=== PATIENT | female | born 1970 | race Caucasian/White ===

== ENCOUNTER 2018-09-30 12:06 | Outpatient (CLI) | payer OTHER ==
[~2018-09-30] VITALS: Ht 160 cm; Wt 61.4 kg
[~2018-09-30 12:06] MED LIST: AMBIEN5 MG PO; BAYER CHEWABLE81 MG PO; BENICAR20 MG PO; BYSTOLIC10 MG PO; CARAFATE1 G PO; DEXILANT30 MG PO; DILAUDID2 MG PO; DIOVAN320 MG PO; EDARBYCLOR 40-1 EACH; ESTRACE2 MG PO; FLAGYL250 MG PO; HYDROCHLOROTHIA25 MG GT; HYOSCYAMINE PO; KLONOPIN0.5 MG PO; NIFEDIPINE ER30 MG PO; PHENERGAN25 M1 PO; PROTONIX40 MG PO; RESTORIL15 MG PO; RESTORIL7.5 MG PO; TOPROL XL50 MG PO; TRICOR145 MG PO; VYTORIN 10-40 M1 TAB PO; WELLBUTRIN SR150 MG PO; WELLBUTRIN XL150 M1 PO; ZOLOFT50 MG PO
[2018-09-30 12:55] LABS: BASOPHILS 0.4 % (0-2); EOSINOPHILS 0.6 % (0-7); HEMATOCRIT 40.2 % (36.0-48.0); LYMPHOCYTES 44.5 % (15-50); MCHC 34.8 g/dL (31.0-37.0); MCV 97.6 fL (80.0-100.0); MEAN PLATELET VOLUME 10.2 fL (7.4-10.4); MONOCYTES 5.7 % (2-11); NEUTROPHILS 48.8 % (40-80); PLATELET COUNT 223 10x3/uL (130-400); RBC 4.12 10x6/uL (4.00-5.40); RDW 12.9 % (11.5-14.5); WBC 5.4 10x3/uL (4.8-10.8)
[2018-09-30 12:57] LABS: APTT 26.5 SECONDS (22.8-39.4); INR 1.02 (0.85-1.17); PROTIME 12.9 SECONDS (11.6-15.0)
[2018-09-30 13:08] LABS: ALBUMIN 3.7 g/dL (3.4-5.0); ALKALINE PHOSPHATASE 69 U/L (46-116); ALT (SGPT) 15 U/L (10-68); BILIRUBIN - TOTAL 0.65 mg/dL (0.2-1.3); CALC OSMOLALITY 274 mosm/kg (275-300); CALCIUM 8.9 mg/dL (8.5-10.1); CARBON DIOXIDE 26.8 mmol/L (21.0-32.0); CHLORIDE - SERUM 103 mmol/L (98-107); CREATININE - SERUM 0.8 mg/dL (0.6-1.3); GLUCOSE 97 mg/dL (74-106); POTASSIUM - SERUM 3.8 mmol/L (3.5-5.1); PROTEIN - SERUM 7.2 g/dL (6.4-8.2); SODIUM 138 mmol/L (136-145); UREA NITROGEN 11 mg/dL (7-18); eGFR NON AFRICAN AMERICAN 81 mL/min (90-120)
[2018-09-30 13:20] LABS: CKMB 0.5 U/L (0.0-3.6); CREATINE KINASE 89 UL (21-215); MAGNESIUM - SERUM 2.2 mg/dL (1.8-2.4)
[2018-09-30 13:21] LABS: TROPONIN-I < 0.017 ng/mL (0.000-0.060)
--- NOTE | 2018-09-30 15:35 | NUR ---
RECEIVED PT TO ROOM 2113 VIA W/C ADMIT TO DR MCKEE DX CHEST PAIN AAOX4 RESP UNLABORED ON ROOM AIR PT C/O HUSAIN AT THIS TIME REFUSES ANYTHING FOR HUSAIN
[2018-09-30 16:07] VITALS: BP 162/90; Ht 160 cm; Wt 61.4 kg
[2018-09-30 16:36] VITALS: BP 162/90
--- NOTE | 2018-09-30 19:40 | NUR ---
RESUMING PATIENT CARE. PATIENT IS ALERT AND ORIENTED, RESTING COMFORTABLY IN BED. RESPIRATIONS ARE EVEN AND UNLABORED. DENIES NEEDS. NO S/S OF DISTRESS. NO C/O PAIN. FAMILY AT BEDSIDE. CALL LIGHT WITHIN REACH. WILL CPOC.
[2018-09-30 20:00] VITALS: BP 144/78
[2018-10-01] VITALS: BP 145/85
[2018-10-01 04:00] VITALS: BP 157/87
--- NOTE | 2018-10-01 08:20 | NUR ---
DR. MCKEE NOTIFIED OF ELEVATED B/P. NEW ORDERS GIVEN.
[2018-10-01 09:36] VITALS: BP 168/98
[2018-10-01] MEDS ORDERED: LISINOPRIL-HCT1 EAC7 PO (11:13)
[2018-10-01 12:18] VITALS: BP 105/55
--- NOTE | 2018-10-01 12:20 | NUR ---
B/P WNL. IV AND TELEMETRY DCD. DC PLANS GIVEN. UNDERSTANDING VOICED. ESCORTED TO CAR BY W/C.
--- NOTE | 2018-10-03 11:35 | DS ---
PATIENT:CALIXTO CONTRERAS :70 MEDICAL RECORD: [id number] DISCHARGE SUMMARY ADMISSION DATE: 09/30/18 DISCHARGE DATE: 10/01/18 DISCHARGE DIAGNOSIS: Hypertension. HISTORY AND HOSPITAL COURSE: Ms. Contreras presented with chest pain and hypertension. Troponins are normal. EKG is normal. She was treated with lisinopril HCT. She will follow up with [facility] with risk stratification and stress testing as an outpatient. TRANSINT:[id number] Voice Confirmation ID: [id number] DOCUMENT ID: [id number] ZENIA MCKEE MD at 1135 CC: [id number] DICTATION DATE: 10/01/18 1004 ELECTRONICS TESTER: 10/01/18 1013 [facility] CLI 10/01/[address] [address]
--- NOTE | 2018-10-05 10:39 | HP ---
PATIENT: CALIXTO CONTRERAS MEDICAL RECORD: [id number] ACCOUNT: [id number] LOCATION:[facility] : 70 ADMISSION DATE: 09/30/18 PCP: ROMI GODOY MD HISTORY AND PHYSICAL EXAMINATION ADMITTING DIAGNOSES: 1. Chest pain. 2. Hypertension. HISTORY OF PRESENT ILLNESS: Mrs. Contreras has a history of hypertension. She was previously on blood pressure medications. She has been off of them for the last 2 years as she lost approximately 100 pounds after esophageal surgery. She has now had systolic readings consistently in the 160-180 range. She began having chest pain with this. Her EKG is normal. Troponin is normal as well. PHYSICAL EXAMINATION: GENERAL APPEARANCE: Well-nourished, well-developed, appears stated age. Level of distress, comfortable. PSYCHIATRIC: Mental status, alert, normal affect. Orientation, oriented to time, place and person. EYES: Lids and conjunctiva, noninjected. No discharge, no pallor. ENT: Lips, teeth, gums, normal dentition. Oropharynx, no cyanosis, no pallor. NECK: Carotid arteries, bilateral normal upstroke, no bruits, no thrills. JUGULAR VEINS: No jugular venous pressure or distention. CERVICAL LYMPH NODES: Nontender, nonenlarged. THYROID: Not enlarged. Nontender. No nodules. LUNGS: Respiratory effort, unlabored. CHEST: Normal curvature. No thoracic deformity. No chest wall tenderness. Percussion, resonant. Auscultation, clear. No wheezes, no rales, no rhonchi. CARDIOVASCULAR: Precordial exam, nondisplaced. No heaves or pericardial thrills. Rate and rhythm, regular. Heart sounds, normal S1, normal S2. No S3, no gallop, no rub. Systolic murmur, not heard. Diastolic murmur, not heard. EXTREMITIES: No cyanosis, no edema. Peripheral pulses, full and equal in all extremities, except as noted. No bruits appreciated. ABDOMEN: Soft, nondistended. Normal aorta. No bruit. Nontender. No masses. Liver, nontender, no hepatomegaly. Spleen, nontender, no splenomegaly. MUSCULOSKELETAL: No joint tenderness. No joint swelling. No erythema. NEUROLOGICAL: Normal gait, normal strength, normal tone. SKIN: Warm and dry. OVERALL IMPRESSION: Hypertension. Most likely all she needs is blood pressure control. We will start her on lisinopril HCT. We will risk stratify with stress testing as an outpatient. TRANSINT:[id number] Voice Confirmation ID: [id number] DOCUMENT ID: [id number] HISTORY AND PHYSICAL [id number] CALIXTO CONTRERAS JEFFREY MD at 1039 CC: [id number] DICTATION DATE: 10/01/18 1003 DIGITAL RETOUCHER: 10/01/18 1024 [facility] CLI 10/01/[address] [id number]
== END 2018-10-01 12:21 | disposition home or self-care (01) ==
LOC: D.ER 12:06 → D.M2 12:06 → D.ER 12:06 → EDSTATUS 14:38 → D.M2 14:42 → D.ER 10-01 12:21
PROVIDERS: Emergency Medicine; ATTEND Internal Medicine Interventional Cardiology
DX: R07.9 Chest pain, unspecified (principal); I10 Essential (primary) hypertension; F17.200 Nicotine dependence, unspecified, uncomplicated

== ENCOUNTER → 2020-08-22 11:16 | Outpatient (CLI) | payer OTHER ==
[2018-09-30 16:07] VITALS: BMI 23.9
[~2020-08-22 11:16] MED LIST changes: +LISINOPRIL-HCT1 EAC7 PO
== END | disposition home or self-care (01) ==
LOC: D.MRI 11:00
PROVIDERS: ATTEND Orthopaedic Surgery
DX: S83.232A Complex tear of medial meniscus, current injury, left knee, initial encounter (principal)